=== PATIENT | female | born 1995 | race Caucasian/White ===

== ENCOUNTER 2020-05-26 15:17 | Outpatient (CLI) | payer OTHER, SELFPAY ==
[2020-05-26 17:16] LABS: HIV 1/2 Ab P24 Ag Result Negative (Negative)
[2020-05-26 17:30] LABS: Hepatitis B Surface Antigen Negative (Negative)
[2020-05-26 17:35] LABS: HAV RESULT Negative (Negative); Hepatitis B Core IgM Result Negative (Negative)
[2020-05-26 17:47] LABS: Hepatitis C Virus Antibody Negative (Negative)
[2020-05-27 11:01] LABS: Rapid Plasma Reagin Non-Reactive (NonReactive)
== END 2020-05-26 15:18 | disposition home or self-care (01) ==
PROVIDERS: PCP Family Medicine; Visit Provider Obstetrics & Gynecology
DX: Z11.3 Encounter for screening for infections with a predominantly sexual mode of transmission (principal)
CPT/HCPCS: 36415; 80074; 86592; 86695; 86696; 86703; G0432

== ENCOUNTER 2020-07-11 15:20 | Emergency (ER) | payer OTHER, SELFPAY ==
[2020-07-11 15:30] VITALS: BP 150/90; PULSE 104; RESP 20; TEMP 36.9; O2SAT 99
--- NOTE | 2020-07-11 15:33 | ED.GENADULT ---
HPI - General Adult General Chief complaint: Urogenital-Female Stated complaint: uti Time Seen by Provider: 07/11/20 15:33 Source: patient Mode of arrival: ambulatory Limitations: no limitations History of Present Illness HPI narrative: 25-year-old female patient presents to the [facility] with complaints of urinary symptoms for the past week. Patient states his symptoms actually began about 2 weeks ago but she did get tested for STDs, and BV and was actually treated for BV however her BV ended up coming back negative. She was also treated for yeast infection. Patient states that her symptoms did get better for short period of time but has now consistently been worse for the past week with pain with urination urgency and frequency. Denies any low back pain or abdominal pain. Denies any fevers, body aches or chills. Denies or breast-feeding at this time. Patient states that she is sexually active but in a monogamous relationship. Related Data Home Medications Medication Instructions Recorded Confirmed norgestimate-ethinyl estradiol 1 tablet PO DAILY 05/15/19 05/15/19 [Estarylla] Allergies Allergy/AdvReac Type Severity Reaction Status Date / Time No Known Allergies Allergy Unverified 05/15/19 09:47 Review of Systems Review of Systems: Narrative: CONSTITUTIONAL: Denies fever, chills, or sweats. EYES: Denies visual changes, redness, or discharge. ENT: Denies rhinorrhea, congestion, sore throat, or otalgia. CARDIOVASCULAR: Denies chest pain, palpitations, or edema. RESPIRATORY: Denies cough or dyspnea. GASTROINTESTINAL: Denies abdominal pain, nausea, vomiting, or diarrhea. GENITOURINARY: Positive dysuria, denies hematuria. Positive urgency and frequency SKIN: Denies rash or itching. MUSCULOSKELETAL: Denies back pain, joint pain, or myalgia. NEUROLOGIC: Denies headache, numbness, or weakness. PSYCHIATRIC: Denies anxiety or depression. [facility] Past Medical History Medical History Cough Exposure to COVID-19 virus Family History Family History Mother Hypertension Patient's mother is in good health Father Patient's father is in good health Family history of lymphoma Grandparent Family history of cardiovascular disease Family history of lung cancer Social History Social History Smoking status: Never smoker Alcohol intake: current Gender identity (if verbalized by the patient): Female Comments At the time of my signature I agree with nursing past medical history, surgical, social, and family history. There is no relevant family history pertinent to the presenting complaint. Exam Narrative: Exam Narrative: GENERAL: Well-appearing, well-nourished, and in no acute distress. HEAD: Normocephalic, atraumatic. EYES: PERRLA and EOMI. ENT: Nares clear, no rhinorrhea or epistaxis. Mucous membranes moist. NECK: Supple. No lymphadenopathy CHEST: Clear to auscultation. No respiratory distress. HEART: Regular rate and rhythm. No murmur heard. Normal peripheral pulses. ABDOMEN: Soft, nontender, nondistended, normal active bowel sounds. No CVA tenderness on percussion EXTREMITIES: Normal range of motion. No edema. SKIN: Warm, dry, no rash. NEURO: No focal deficits. Alert and oriented x3. Course Vital Signs Vital signs: Vital Signs Temperature 36.9 C 07/11/20 15:30 Pulse Rate 104 H 07/11/20 15:30 Respiratory Rate 20 07/11/20 15:30 Blood Pressure 150/90 H 07/11/20 15:30 Pulse Oximetry 99 07/11/20 15:30 Temperature 36.9 C 07/11/20 15:30 Pulse Rate 104 H 07/11/20 15:30 Respiratory Rate 20 07/11/20 15:30 Blood Pressure 150/90 H 07/11/20 15:30 Pulse Oximetry 99 07/11/20 15:30 Vital signs reviewed The patient has been informed that they may have pre-hypertension or Hypertension based on a BP david
== END 2020-07-11 15:51 | disposition home or self-care (01) ==
PROVIDERS: Emergency Provider Nurse Practitioner Family; PCP Family Medicine
DX: R30.0 Dysuria (principal); R31.9 Hematuria, unspecified
CPT/HCPCS: 81003; 81025; 87086; 99213; G0463

== ENCOUNTER 2020-07-23 06:54 | Outpatient (NON) | payer OTHER, SELFPAY ==
[2020-07-23 21:58] LABS: SARS-CoV-2 RNA PCR Negative
== END 2020-07-23 06:55 ==
LOC: ANHCOVIDDT 07:02
PROVIDERS: PCP Family Medicine; Visit Provider Family Medicine
DX: Z20.822 Contact with and (suspected) exposure to COVID-19 (principal)
CPT/HCPCS: C9803; U0003; U0005

== ENCOUNTER 2020-08-15 12:36 | Emergency (ER) | payer OTHER, SELFPAY ==
--- NOTE | ~2020-08-15 | XR_ITS ---
EXAMINATION: XR chest 2V 08/15/2020 13:42 INDICATION: Chest pain PROCEDURE: 2 view chest COMPARISON: No prior studies for comparison. FINDINGS: The lungs are clear. The cardiomediastinal silhouette is within normal limits. There are no pleural effusions. There is no pneumothorax suspected. IMPRESSION: 1: NO ACUTE CARDIOPULMONARY DISEASE. Reviewed, dictated and finalized at location B. NDENCY COUNSELOR
--- NOTE | 2020-08-15 12:38 | ECG_ITS ---
Measurements Intervals [place] Rate: 118 P: 53 [place]: 149 QRS: 50 QRSD: 81 T: 31 QT: 330 QTc: 463 Interpretive Statements SINUS TACHYCARDIA ABNORMAL ECG Electronically Signed On 08-15-2020 12:59:49 SURGICAL PROCESSOR by Evin Perez D.O.
[2020-08-15 12:45] VITALS: BP 171/95; PULSE 114; RESP 18; TEMP 36.8; O2SAT 100
[2020-08-15 12:49] VITALS: PULSE 118
[2020-08-15 12:57] VITALS: BP 166/99; PULSE 123; RESP 17; O2SAT 100
--- NOTE | 2020-08-15 13:03 | PC.NURSE ---
Spoke with POOJA Graham, patient does not need a sitter at this time. Patient is low risk on [facility] suicide risk assessment.
[2020-08-15 13:06] LABS: Basophils Absolute Auto 0.1 K/mm3 (0.0-0.1); Eosinophils Absolute Auto 0.1 K/mm3 (0-0.3); Eosinophils Percent Auto 0.9 % (0-4.4); Hematocrit 42.8 % (37.0-47.0); Hemoglobin 14.4 g/dL (12.0-15.0); Immature Granulocyte Absolute 0.03 K/mm3 (0.00-0.031); Immature Granulocyte Percent A 0.3 % (0-0.5); Lymphocytes Absolute Auto 2.29 K/mm3 (0.9-3.2); Lymphocytes Percent Auto 25.7 % (18.3-44.2); Mean Corpuscular HGB Conc 33.6 g/dl (32-36); Mean Corpuscular Hemoglobin 30.5 pg (26-34); Mean Corpuscular Volume 90.7 fl (80-100); Mean Platelet Volume 10.7 fl (7.4-10.4); Monocytes Absolute Auto 0.6 K/mm3 (0.1-0.6); Monocytes Percent Auto 6.2 % (2.6-8.5); Neutrophils Absolute Auto 5.9 K/mm3 (1.3-6.7); Neutrophils Percent Auto 65.9 % (45.5-73.1); Platelet Count Result 258 k/mm3 (150-375); Red Blood Count 4.72 M/mm3 (4.2-5.4); Red Cell Distribution Width 12.6 % (11.5-14.5); White Blood Count 8.9 K/mm3 (4.5-10.0)
[2020-08-15 13:18] LABS: Anion Gap 7 mmol/L (8-16); Blood Urea Nitrogen 18 mg/dL (7-17); Calcium 9.5 mg/dL (8.4-10.2); Carbon Dioxide 27 mmol/L (22-30); Chloride 105 mmol/L (98-107); Estimated CRCL calculation 128 ml/min; Estimated Glomerular Filt Rate > 60; Glucose 127 mg/dL (65-105); Potassium 3.5 mmol/L (3.4-5.0); Prothrombin Time 13.5 Seconds (11.1-14.7); Sodium 139 mmol/L (137-145)
[2020-08-15 13:19] LABS: Partial Thromboplastin Time 28.3 SECONDS (22.3-36.8)
[2020-08-15 13:30] LABS: Troponin I < 0.012 ng/mL (0.000-0.034)
[2020-08-15 13:39] LABS: Ethanol < 10 mg/dL (<10)
--- NOTE | 2020-08-15 13:51 | ED.CHESTPAIN ---
HPI - Chest Pain General Chief Complaint: Chest Pain Stated Complaint: chest pain, dyspnea Time Seen by Provider: 08/15/20 12:43 Source: patient Mode of arrival: ambulatory Limitations: no limitations History of Present Illness HPI narrative: Patient is a 25-year-old female who presents to emergency department with heaviness across the chest that began this morning does note some stress and anxiety in her life denies URI symptoms dyspnea or other complaints has been taking a diet pill as well patient lives at home with family presents with mother she is in no distress upon arrival patient denies similar occurrence in the past when asked questions by intake nurse she notes that she has had passive thoughts of harming herself with longstanding history of depression denies any plan or prior history of harming herself or hospitalizations patient on arrival to emergency department resting comfortably no distress Related Data Home Medications Medication Instructions Recorded Confirmed No Home Medications 08/15/20 08/15/20 Allergies Allergy/AdvReac Type Severity Reaction Status Date / Time No Known Allergies Allergy Verified 08/15/20 12:49 Review of Systems Review of Systems: All systems reviewed & are unremarkable except as noted in HPI and below PMFSH Past Medical History Medical History Cough Exposure to COVID-19 virus Pharyngitis Family History Family History Mother Hypertension Patient's mother is in good health Father Patient's father is in good health Family history of lymphoma Grandparent Family history of cardiovascular disease Family history of lung cancer Social History Social History Smoking status: Never smoker Alcohol intake: current Gender identity (if verbalized by the patient): Female Exam Narrative: Exam Narrative: GENERAL: Well-appearing, obese, and in no acute distress. HEAD: Normocephalic, atraumatic. EYES: PERRLA and EOMI. ENT: Nares clear, no rhinorrhea or epistaxis. Mucous membranes moist. CHEST: Clear to auscultation. No respiratory distress. No wheezes rales or rhonchi HEART: Regular rate and rhythm. No murmur heard. Normal peripheral pulses. ABDOMEN: Soft, nontender, nondistended EXTREMITIES: Normal range of motion. No edema. SKIN: Warm, dry, no rash. NEURO: No focal deficits. Alert and oriented x3. PSYCH: Normal mood and affect. Course Course Emergency Course: Patient evaluated in the emergency department medically cleared has safety program and contract in place with crisis I am in agreements with the patient being discharged home for outpatient follow-up provided with reasons to return and agrees to do so if symptoms worsen patient is afebrile nontoxic-appearing resting comfortably in the room Vital Signs Vital signs: Vital Signs Temperature 98.3 F 08/15/20 12:45 Pulse Rate 114 H 08/15/20 12:45 Respiratory Rate 18 08/15/20 12:45 Blood Pressure 171/95 H 08/15/20 12:45 Pulse Oximetry 100 08/15/20 12:45 Temperature 98.3 F 08/15/20 12:45 Pulse Rate 87 08/15/20 15:42 Respiratory Rate 16 08/15/20 15:42 Blood Pressure 129/66 08/15/20 15:42 Pulse Oximetry 100 08/15/20 15:42 MDM - Chest Pain MDM Narrative Medical decision making narrative: Patients EKGs and labs are without significant high risk changes. Cardiac risk factors were reviewed. Patient is felt likely to be low risk for ACS and reasonable for further risk stratification testing as an outpatient. Pain was not sudden or maximal in onset without tearing or ripping. quality. No other signs or symptoms to suggest aortic dissection. A low-risk Wells criteria is noted. PE is felt to be unlikely. No pneumonia or URI symptoms were seen on evaluation today. Patient is felt to b reasonable for continued evalu
[2020-08-15] MEDS: SODIUM CHLORIDE 0.9% IV 1,000 ML 999 ML IV CONT (14:07)
[2020-08-15 14:39] VITALS: BP 133/76; PULSE 84; RESP 18; O2SAT 100
[2020-08-15 14:48] LABS: Add Urine Microscopic? YES; Appearance Urine Cloudy (Clear); Bacteria Urine Trace /hpf; Bilirubin Urine Negative (Negative); Blood Urine Negative (Negative); Color Urine Yellow (Yellow); Glucose Urine UA Negative (Negative); Ketones Urine Negative (Negative); Leukocyte Esterase Ur Trace LEU/UL (Negative); Mucus Urine Moderate /lpf; Nitrate Urine Negative (Negative); Protein Urine 1+ mg/dL (Negative); Specific Grav Ur 1.029 (1.001-1.035); Squamous Epithelial Cell Urine Many /hpf (Few); Urobilinogen Urine Negative mg/dL (<2.0)
[2020-08-15 15:08] LABS: Amphetamine Screen Urine Negative (Negative); Barbiturate Screen Urine Negative (Negative); Benzodiazepines Screen Urine Negative (Negative); Cannabinoid Screen Urine Negative (Negative); Cocaine Screen Urine Negative (Negative); Methadone Screen Urine Negative (Negative); Opiate Screen Urine Negative (Negative); Phencyclidine Screen Urine Negative (Negative)
[2020-08-15 15:42] VITALS: BP 129/66; PULSE 87; RESP 16; O2SAT 100
--- NOTE | 2020-08-15 15:48 | PC.NURSE ---
Melissa called and stated that she will be out in about 20 min
[2020-08-15 15:54] LABS: Thyroid Stimulating Hormone 0.665 uIU/mL (0.465-4.680)
[2020-08-15 16:35] LABS: Troponin I < 0.012 ng/mL (0.000-0.034)
[2020-08-15 17:40] VITALS: BP 128/66; PULSE 93; RESP 21; O2SAT 100
== END 2020-08-15 17:40 | disposition home or self-care (01) ==
PROVIDERS: Emergency Medicine; Emergency Medicine Emergency Medical Services; Emergency Provider Emergency Medicine; PCP Family Medicine
DX: R07.9 Chest pain, unspecified (principal); F32.9 Major depressive disorder, single episode, unspecified; R00.0 Tachycardia, unspecified
CPT/HCPCS: 36415; 71046; 80048; 80307; 81001; 81025; 84443; 84484; 85025; 85610; 85730; 93005; 96360; 99284; J7030

== ENCOUNTER 2020-10-08 13:08 | Outpatient (CLI) | payer OTHER, SELFPAY ==
[2020-10-08 13:37] LABS: Basophils Absolute Auto 0.1 K/mm3 (0.0-0.1); Basophils Percent Auto 0.5 % (0.2-1.2); Eosinophils Absolute Auto 0.1 K/mm3 (0-0.3); Eosinophils Percent Auto 0.7 % (0-4.4); Hematocrit 41.4 % (37.0-47.0); Hemoglobin 14.3 g/dL (12.0-15.0); Immature Granulocyte Absolute 0.05 K/mm3 (0.00-0.031); Immature Granulocyte Percent A 0.5 % (0-0.5); Lymphocytes Absolute Auto 2.57 K/mm3 (0.9-3.2); Lymphocytes Percent Auto 23.3 % (18.3-44.2); Mean Corpuscular HGB Conc 34.5 g/dl (32-36); Mean Corpuscular Hemoglobin 30.6 pg (26-34); Mean Corpuscular Volume 88.7 fl (80-100); Mean Platelet Volume 10.4 fl (7.4-10.4); Monocytes Absolute Auto 0.9 K/mm3 (0.1-0.6); Monocytes Percent Auto 7.9 % (2.6-8.5); Neutrophils Absolute Auto 7.4 K/mm3 (1.3-6.7); Neutrophils Percent Auto 67.1 % (45.5-73.1); Platelet Count Result 299 k/mm3 (150-375); Red Blood Count 4.67 M/mm3 (4.2-5.4); Red Cell Distribution Width 12.4 % (11.5-14.5)
[2020-10-08 14:34] LABS: Hemoglobin A1C 5.2 % (<5.7)
[2020-10-08 15:00] LABS: Cholesterol 279 mg/dL (0-200); HDL Direct 62 mg/dL; Triglycerides 376 mg/dL (<150)
[2020-10-08 15:07] LABS: Thyroid Stimulating Hormone Reflex 0.121 uIU/mL (0.465-4.68)
[2020-10-08 15:11] LABS: LDL Cholesterol Direct 153 mg/dL
[2020-10-08 16:02] LABS: Free T4 Free Thyroxine Reflex 0.86 ng/dL (0.78-2.19)
[2020-10-08 17:25] LABS: Total Triiodothyronine (T3) 1.36 NG/ML (0.97-1.69)
[2020-10-11 11:04] LABS: DHEA-Sulfate 153 mcg/dL (18-391)
[2020-10-12 09:22] LABS: FSH 6.8 mIU/mL (***); LH 18.6 mIU/mL (***); Progesterone 0.2 ng/mL (***); Prolactin 4.7 ng/mL (***)
[2020-10-12 14:47] LABS: Testosterone Free 9.3 pg/mL (0.1-6.4); Testosterone Total 56 ng/dL (2-45)
[2020-10-15 18:12] LABS: Estradiol, Ultrasensitive 47 pg/mL
== END 2020-10-08 13:09 | disposition home or self-care (01) ==
PROVIDERS: PCP Family Medicine; Visit Provider Obstetrics & Gynecology
DX: N92.6 Irregular menstruation, unspecified (principal)
CPT/HCPCS: 36415; 80061; 82627; 82670; 83001; 83002; 83036; 84144; 84146; 84402; 84403; 84439; 84443; 84480; 85025

== ENCOUNTER 2020-12-12 16:00 | Outpatient (CLI) | payer OTHER, SELFPAY ==
--- NOTE | 2020-12-29 10:32 | WPDHOMESLEEP ---
Sleep Study - Home Unattended Date of Study: 12/12/20 Ordering Provider: Miguel A Anne MD Interpreting Provider: Maria De Jesus Ocasio MD Home Sleep Study Type: Apnea Link Air Height: 1.65 m Weight: 95.254 kg Body Mass Index: 34.9 Neck Circumference (inches): 16 [place]: 4 Reason for Sleep Study hypersomnia Sleep History Morenita Hendrix is a 25-year-old woman who snores loudly and she has difficulty sleeping. She has difficulty staying asleep. Both parents have sleep apnea. She does not awaken from sleep feeling short of breath. She frequently awakens at night with heartburn, belching or coughing. She constantly snores and is constantly loud enough that others complain about it. She occasionally has trouble sleep with a cold. She does not have breathing problems at night reported to her by others. She occasionally sweats excessively at night. She rarely notices her heart pounding or beating irregularly night. She rarely falls asleep during the day, does not fall asleep involuntarily and does not fall asleep while driving the car. She does not have loss of muscle tone with strong emotion. She constantly has daytime difficulties due to her excessive sleepiness. She rarely feels paralyzed on waking or falling asleep. She frequently has vivid dreamlike scenes upon awakening or falling asleep. She does not feel afraid to go to sleep. She occasionally has nightmares. She frequently remembers her dreams. She constantly is racing thoughts, constantly has feelings of sadness, depression and anxiety. She occasionally notices parts of her body jerking. She does not kick at night. She occasionally has crawling and aching feelings in her legs. She rarely has leg pain at night. She rarely has morning jaw pain. She frequently grinds her teeth during sleep. She occasionally has bothered by pain during the day she occasionally has awakened by pain at night. She constantly wakes up feeling stiff in the morning with sore achy muscles and pain in the neck and spine. She has fatigue, memory problems, depression and headaches. She has insomnia and concentration difficulties. Normal bedtime is 10:30 p.m. falling asleep within 1-2 hours, waking once at night for 2-3 hours. During this time, she will sit up and play on her phone until she is able to fall asleep again. She wakes the morning at 4:00 a.m.. She estimates getting between 4 to 5 hours of sleep routinely. She does sleep more on the weekends. On the weekends, she goes to bed at 11:00 p.m. and wakes at 8:00 a.m.. She does not generally take naps. A short nap is not refreshing. She is usually drowsy for 3 hours or longer after waking. She feels better in the afternoon compared other times of day. Habits: She quit tobacco 2 months ago. Caffeine 1 or 2 cups daily. Alcohol: small amount, 1 drink socially. Recreational drugs: social marijuana use. [facility] Past Medical History Medical History Anxiety BMI 36.0-36.9,adult Cough Elevated WBC count Exposure to COVID-19 virus Gestational diabetes Hyperlipidemia total cholesterol 279, triglycerides 376, HDL 62 and LDL 153 on 10/08/2020 Hypersomnia Impacted cerumen of left ear Otalgia, left ear Pharyngitis Tobacco abuse Family History Family History (Updated 12/29/20 @ 10:38 by Maria De Jesus Ocasio MD) Mother Hypertension Diabetes mellitus Obstructive sleep apnea Father Family history of lymphoma Obstructive sleep apnea Grandparent Family history of cardiovascular disease Family history of lung cancer Hypertension Grandparent Hypertension Heart disease Social History Social History Smoking status: Current every day smoker Tobacco type: cigarettes Alcohol intake: current Substance use: never Gender identity (if verbalized by the patient): Female Medications Home Medications Me
[2020-12-29 10:46] VITALS: BMI 34.9
== END 2020-12-12 16:09 | disposition home or self-care (01) ==
LOC: ANHCSM 12-15 10:04
PROVIDERS: PCP Nurse Practitioner Family; Visit Provider Family Medicine
DX: G47.10 Hypersomnia, unspecified (principal); G47.33 Obstructive sleep apnea (adult) (pediatric)
CPT/HCPCS: 95806

== ENCOUNTER 2021-01-06 10:44 | Outpatient (CLI) | payer OTHER, SELFPAY ==
[2021-01-06 11:20] LABS: Alanine Aminotransferase 35 U/L (4-35); Albumin Level 4.4 g/dL (3.5-5.1); Alkaline Phosphatase 96 U/L (38-126); Anion Gap 11 mmol/L (8-16); Aspartate Amino Transferase 32 U/L (14-36); Bilirubin,Total 0.3 mg/dL (0.2-1.3); Blood Urea Nitrogen 12 mg/dL (7-17); Calcium 9.8 mg/dL (8.4-10.2); Carbon Dioxide 21 mmol/L (22-30); Chloride 103 mmol/L (98-107); Cholesterol 271 mg/dL (0-200); Estimated Glomerular Filt Rate > 60; Glucose 96 mg/dL (65-105); HDL Direct 64 mg/dL; Potassium 4.2 mmol/L (3.4-5.0); Sodium 135 mmol/L (137-145); Triglycerides 390 mg/dL (<150)
[2021-01-06 11:24] LABS: Basophils Absolute Auto 0.1 K/mm3 (0.0-0.1); Basophils Percent Auto 0.7 % (0.2-1.2); Eosinophils Percent Auto 0.4 % (0-4.4); Hemoglobin 13.8 g/dL (12.0-15.0); Immature Granulocyte Absolute 0.04 K/mm3 (0.00-0.031); Immature Granulocyte Percent A 0.4 % (0-0.5); Immature Platelet Fraction Pct 5.2 % (0.9-11.2); Lymphocytes Absolute Auto 2.75 K/mm3 (0.9-3.2); Lymphocytes Percent Auto 25.7 % (18.3-44.2); Mean Corpuscular HGB Conc 32.9 g/dl (32-36); Mean Corpuscular Volume 88.2 fl (80-100); Monocytes Absolute Auto 0.6 K/mm3 (0.1-0.6); Monocytes Percent Auto 5.6 % (2.6-8.5); Neutrophils Absolute Auto 7.2 K/mm3 (1.3-6.7); Neutrophils Percent Auto 67.2 % (45.5-73.1); Red Blood Count 4.76 M/mm3 (4.2-5.4); White Blood Count 10.7 K/mm3 (4.5-10.0)
[2021-01-06 11:31] LABS: LDL Cholesterol Direct 133 mg/dL
[2021-01-06 12:27] LABS: Folic Acid > 20.0 ng/mL (2.76->20)
== END 2021-01-06 10:45 | disposition home or self-care (01) ==
PROVIDERS: PCP Family Medicine; Visit Provider Nurse Practitioner Family
DX: E78.5 Hyperlipidemia, unspecified (principal); D72.829 Elevated white blood cell count, unspecified; F32.9 Major depressive disorder, single episode, unspecified; F41.9 Anxiety disorder, unspecified
CPT/HCPCS: 36415; 80053; 80061; 82607; 82746; 85025; 85055

== ENCOUNTER → 2021-01-13 01:00 | Outpatient (CLI) | payer OTHER, SELFPAY ==
[2021-01-13 17:38] LABS: SARS-CoV-2 RNA PCR Negative
== END ==
PROVIDERS: PCP Family Medicine; Visit Provider Internal Medicine Critical Care Medicine
DX: Z01.812 Encounter for preprocedural laboratory examination (principal); Z20.822 Contact with and (suspected) exposure to COVID-19
CPT/HCPCS: C9803; U0003; U0005

== ENCOUNTER 2021-01-16 09:04 | Outpatient (CLI) | payer OTHER, SELFPAY ==
--- NOTE | 2021-02-04 14:27 | WPDSLEEPSTUD ---
Sleep Study Date of Study: 01/16/21 Ordering Provider: Miguel A Anne MD Interpreting Physician: Maria De Jesus Ocasio MD Sleep Study Type: CPAP Titration Height: 1.65 m Weight: 95.254 kg Body Mass Index: 34.9 Neck Circumference (inches): 17 [place]: 4 Reason for Sleep Study Home sleep test 12/12/2020 with mild obstructive sleep apnea, AHI 5, 67% central events, 91% and snoring; she is here for CPAP titration. Sleep History Morenita Hendrix is a 25-year-old woman who snores loudly, has difficulty getting to sleep and staying asleep. Both parents have sleep apnea. She does not awaken from sleep feeling short of breath. She frequently awakens at night with heartburn, belching or coughing. She constantly snores loudly enough that others complain about it. She occasionally has trouble sleep with a cold. She does not have breathing problems at night reported to her by others. She occasionally sweats excessively at night. She rarely notices her heart pounding or beating irregularly night. She rarely falls asleep during the day, does not fall asleep involuntarily and does not fall asleep while driving the car. She does not have loss of muscle tone with strong emotion. She constantly has daytime difficulties due to her excessive sleepiness. She rarely feels paralyzed on waking or falling asleep. She frequently has vivid dreamlike scenes upon awakening or falling asleep. She does not feel afraid to go to sleep. She occasionally has nightmares. She frequently remembers her dreams. She constantly is racing thoughts, constantly has feelings of sadness, depression and anxiety. She occasionally notices parts of her body jerking. She does not kick at night. She occasionally has crawling and aching feelings in her legs. She rarely has leg pain at night. She rarely has morning jaw pain. She frequently grinds her teeth during sleep. She occasionally is bothered by pain during the day she occasionally is awakened by pain at night. She constantly wakes up feeling stiff in the morning with sore achy muscles and pain in the neck and spine. She has fatigue, memory problems, depression and headaches. She has insomnia and concentration difficulties. Normal bedtime is 10:30 p.m. falling asleep within 1-2 hours, waking once at night for 2-3 hours. During this time, she will sit up and play on her phone until she is able to fall asleep again. She wakes the morning at 4:00 a.m.. She estimates getting between 4 to 5 hours of sleep routinely. She does sleep more on the weekends. On the weekends, she goes to bed at 11:00 p.m. and wakes at 8:00 a.m.. She does not generally take naps. A short nap is not refreshing. She is usually drowsy for 3 hours or longer after waking. She feels better in the afternoon compared other times of day. Habits: She quit tobacco 2 months ago. Caffeine 1 or 2 cups daily. Alcohol: small amount, 1 drink socially. Recreational drugs: social marijuana use. [facility] Past Medical History Medical History Anxiety Anxiety with depression BMI 34.0-34.9,adult BMI 36.0-36.9,adult Cough Elevated WBC count Exposure to COVID-19 virus Gestational diabetes Hyperlipidemia total cholesterol 279, triglycerides 376, HDL 62 and LDL 153 on 10/08/2020 Hypersomnia Impacted cerumen of left ear Otalgia, left ear Pharyngitis Tobacco abuse Yeast infection Family History Family History Mother Hypertension Diabetes mellitus Obstructive sleep apnea Father Family history of lymphoma Obstructive sleep apnea Grandparent Family history of cardiovascular disease Family history of lung cancer Hypertension Grandparent Hypertension Heart disease Social History Social History Smoking status: Former smoker Tobacco type: cigarettes Alcohol intake: current
[2021-02-04 14:28] VITALS: BMI 34.9
== END 2021-01-17 05:54 | disposition home or self-care (01) ==
LOC: ANHCSM 09:05
PROVIDERS: PCP Family Medicine; Visit Provider Family Medicine
DX: G47.33 Obstructive sleep apnea (adult) (pediatric) (principal); G47.10 Hypersomnia, unspecified; G25.81 Restless legs syndrome
CPT/HCPCS: 95811

== ENCOUNTER 2021-02-12 20:14 | Emergency (ER) | payer OTHER, SELFPAY ==
--- NOTE | ~2021-02-12 | XR_ITS ---
EXAMINATION: XR knee LT 3V DATE: 02/12/2021 23:05 INDICATION: Left knee pain post fall TECHNIQUE: Anteroposterior, oblique and crosstable lateral views of the left knee were obtained COMPARISON: None. FINDINGS: Alignment is normal. No fracture. No joint effusion/layering lipohemarthrosis. Soft tissues are unre markable. IMPRESSION: 1. Normal left knee radiographs. Reviewed, dictated and finalized at location A.
--- NOTE | ~2021-02-12 | XR_ITS ---
EXAMINATION: XR ankle LT min 3V DATE: 02/12/2021 20:29 INDICATION: Lateral left ankle pain post injury TECHNIQUE: Anteroposterior, oblique, mortise, and lateral views of the left ankle were obtained. COMPARISON: None. FINDINGS: Alignment is normal. No fracture. Joint spaces are well maintained. No ankle joint effusion. The so ft tissues are unremarkable. IMPRESSION: 1. Negative left ankle radiographs. Reviewed, dictated and finalized at location A.
[2021-02-12 20:21] VITALS: BP 144/100; PULSE 92; RESP 18; TEMP 36.4; O2SAT 99
--- NOTE | 2021-02-12 22:53 | ED.GENADULT ---
HPI - General Adult General Chief complaint: Extremity Injury, Lower Stated complaint: left ankle pain Time Seen by Provider: 02/12/21 22:07 History of Present Illness HPI narrative: Patient 26-year-old female presents the emergency department chief complaint of left ankle pain. The patient reports that she was at work stepped on a curb fell and twisted her left ankle. The patient reports that there is pain in the ankle and also reports she has pain shooting up her leg to her knee. Patient states it is worse with ambulation and improved with rest. Patient denies head injury denies loss of consciousness reports she has an abrasion on her right knee. Related Data Home Medications Medication Instructions Recorded Confirmed multivitamin with minerals 1 tablet PO DAILY 10/13/20 01/12/21 Allergies Allergy/AdvReac Type Severity Reaction Status Date / Time No Known Allergies Allergy Verified 02/12/21 20:20 Review of Systems Review of Systems: A 10 system review of systems was completed on the patient and is negative except for what is stated in the HPI. Nursing and ancillary documentation was reviewed. [facility] Past Medical History Medical History Anxiety Anxiety with depression BMI 34.0-34.9,adult BMI 36.0-36.9,adult Cough Elevated WBC count Exposure to COVID-19 virus Gestational diabetes Hyperlipidemia total cholesterol 279, triglycerides 376, HDL 62 and LDL 153 on 10/08/2020 Hypersomnia Impacted cerumen of left ear Otalgia, left ear Pharyngitis Tobacco abuse Yeast infection Family History Family History Mother Hypertension Diabetes mellitus Obstructive sleep apnea Father Family history of lymphoma Obstructive sleep apnea Grandparent Family history of cardiovascular disease Family history of lung cancer Hypertension Grandparent Hypertension Heart disease Social History Social History Smoking status: Former smoker Tobacco type: cigarettes Alcohol intake: current Substance use: never Substance use type: does not use Gender identity (if verbalized by the patient): Female Exam Narrative: GENERAL: Well-appearing, well-nourished, and in no acute distress. HEAD: Normocephalic, atraumatic. EYES: PERRLA and EOMI. ENT: Nares clear, no rhinorrhea or epistaxis. Mucous membranes moist. NECK: Supple. CHEST: Clear to auscultation. No respiratory distress. HEART: Regular rate and rhythm. No murmur heard. Normal peripheral pulses. ABDOMEN: Soft, nontender, nondistended, normal active bowel sounds. EXTREMITIES: Normal range of motion. No edema. There is tenderness to palpation in the left ankle there is also tenderness in the left knee. There is no deformity. SKIN: Warm, dry, no rash. NEURO: No focal deficits. Alert and oriented x3. PSYCH: Normal mood and affect. Course Vital Signs Vital signs: Vital Signs Temperature 36.4 C 02/12/21 20: Pulse Rate 92 02/12/21 20:21 Respiratory Rate 18 02/12/21 20:21 Blood Pressure 144/100 H 02/12/21 20:21 Pulse Oximetry 99 02/12/21 20:21 Temperature 36.4 C 02/12/21 20:21 Pulse Rate 92 02/12/21 20:21 Respiratory Rate 18 02/12/21 20:21 Blood Pressure 144/100 H 02/12/21 20:21 Pulse Oximetry 99 02/12/21 20:21 Medical Decision Making Vital Signs Vital Signs: Vital Signs Temperature 36.4 C 02/12/21 20:21 Pulse Rate 92 02/12/21 20:21 Respiratory Rate 18 02/12/21 20:21 Blood Pressure 144/100 H 02/12/21 20:21 Pulse Oximetry 99 02/12/21 20:21 Temperature 36.4 C 02/12/21 20:21 Pulse Rate 92 02/12/21 20:21 Respiratory Rate 18 02/12/21 20:21 Blood Pressure 144/100 H 02/12/21 20:21 Pulse Oximetry 99 02/12/21 20:21 Discharge Plan Discharge Clinical Impression: Left ankle sprai
[2021-02-13 00:24] VITALS: BP 140/83; PULSE 88; RESP 16; O2SAT 98
== END 2021-02-13 00:06 | disposition home or self-care (01) ==
PROVIDERS: Emergency Provider Emergency Medicine; PCP Family Medicine
DX: S93.402A Sprain of unspecified ligament of left ankle, initial encounter (principal); Z87.891 Personal history of nicotine dependence; E78.5 Hyperlipidemia, unspecified; W10.1XXA Fall (on)(from) sidewalk curb, initial encounter
CPT/HCPCS: 73562; 73610; 99284

== ENCOUNTER → 2021-03-25 00:19 | Outpatient (CLI) | payer OTHER, SELFPAY ==
[2021-03-25 16:56] LABS: SARS-CoV-2 RNA PCR Negative
== END ==
PROVIDERS: PCP Family Medicine; Visit Provider Nurse Practitioner Family
DX: Z20.822 Contact with and (suspected) exposure to COVID-19 (principal)
CPT/HCPCS: C9803; U0003; U0005

== ENCOUNTER 2021-03-27 11:40 | Outpatient (CLI) | payer OTHER, SELFPAY ==
--- NOTE | ~2021-03-27 | XR_ITS ---
XR abdomen/kub 1V 03/27/2021 11:57 INDICATION: Left lower quadrant pain TECHNIQUE: KUB COMPARISON: None FINDINGS: Bowel gas pattern is normal. There is no evidence of free air, mass, organomegaly, ascites or obstruction. No abnormal calculi are seen. The bones appear intact. IMPRESSION: 1: No acute abdominal abnormality identified. Reviewed, dictated and finalized at location A.
== END 2021-03-27 11:41 | disposition home or self-care (01) ==
LOC: ANHIMG 11:42
PROVIDERS: PCP Nurse Practitioner Family; Visit Provider Nurse Practitioner Family
DX: K59.00 Constipation, unspecified (principal); R10.32 Left lower quadrant pain; R10.33 Periumbilical pain; R11.0 Nausea
CPT/HCPCS: 74018

== ENCOUNTER 2022-01-07 13:13 | Outpatient (RCR) | payer OTHER, SELFPAY ==
[2022-01-07] MEDS: ACETAMINOPHEN 325 MG TABLET 650 MG PO (14:32)
[2022-01-07] MEDS: diphenhydrAMINE HCl CAP 25 MG CAPSULE PO (14:33)
[2022-01-07] MEDS: FAMOTIDINE 20 MG TABLET PO (14:33)
[2022-01-07 14:36] VITALS: BP 130/74; PULSE 92; TEMP 36.4; O2SAT 100
[2022-01-07] MEDS: BEBTELOVIMAB 175 MG/2 ML VIAL IV PUSH (14:51)
[2022-01-07 15:32] VITALS: BP 118/70; PULSE 81; RESP 18; O2SAT 100
== END 2022-01-07 16:00 ==
LOC: AMCINF 13:13
PROVIDERS: PCP Family Medicine; Referring Provider Family Medicine; Visit Provider Internal Medicine Hematology & Oncology
DX: U07.1 COVID-19 (principal)
CPT/HCPCS: A9270; M0222; Q0222

== ENCOUNTER 2022-02-12 08:42 | Outpatient (CLI) | payer OTHER, SELFPAY ==
[2022-02-12 09:01] LABS: Basophils Absolute Auto 0.1 K/mm3 (0.0-0.1); Basophils Percent Auto 0.9 % (0.2-1.2); Eosinophils Absolute Auto 0.1 K/mm3 (0-0.3); Eosinophils Percent Auto 1.6 % (0-4.4); Hemoglobin 12.8 g/dL (12.0-15.0); Immature Granulocyte Absolute 0.02 K/mm3 (0.00-0.031); Immature Granulocyte Percent A 0.3 % (0-0.5); Lymphocytes Absolute Auto 2.24 K/mm3 (0.9-3.2); Lymphocytes Percent Auto 34.8 % (18.3-44.2); Mean Corpuscular HGB Conc 32.8 g/dl (32-36); Mean Corpuscular Volume 91.5 fl (80-100); Mean Platelet Volume 9.9 fl (7.4-10.4); Monocytes Absolute Auto 0.6 K/mm3 (0.1-0.6); Monocytes Percent Auto 9.2 % (2.6-8.5); Neutrophils Absolute Auto 3.4 K/mm3 (1.3-6.7); Neutrophils Percent Auto 53.2 % (45.5-73.1); Platelet Count Result 289 k/mm3 (150-375); Red Blood Count 4.26 M/mm3 (4.2-5.4); Red Cell Distribution Width 13.4 % (11.5-14.5); White Blood Count 6.4 K/mm3 (4.5-10.0)
[2022-02-12 09:38] LABS: Beta HCG Quantitative < 2.39 mIU/ML
[2022-02-12 13:28] LABS: Cholesterol 212 mg/dL (0-200); HDL Direct 49 mg/dL; Triglycerides 107 mg/dL (<150)
[2022-02-12 13:39] LABS: LDL Cholesterol Direct 114 mg/dL
[2022-02-16 21:26] LABS: FSH 6.6 mIU/mL (***); Progesterone 0.3 ng/mL (***); Prolactin 7.6 ng/mL (***)
[2022-02-17 11:11] LABS: DHEA-Sulfate 108 mcg/dL (18-391)
[2022-02-18 10:23] LABS: Testosterone Total 42 ng/dL (2-45)
[2022-02-19 23:12] LABS: Estradiol, Ultrasensitive 27 pg/mL
== END 2022-02-12 08:43 | disposition home or self-care (01) ==
PROVIDERS: PCP Family Medicine; Visit Provider Obstetrics & Gynecology
DX: N93.9 Abnormal uterine and vaginal bleeding, unspecified (principal)
CPT/HCPCS: 36415; 80061; 82627; 82670; 83001; 83036; 83498; 84144; 84146; 84402; 84403; 84702; 85025

== ENCOUNTER 2022-11-09 08:49 | Outpatient (CLI) | payer OTHER, SELFPAY ==
[2022-11-09 09:13] LABS: Basophils Absolute Auto 0.1 K/mm3 (0.0-0.1); Basophils Percent Auto 0.8 % (0.2-1.2); Eosinophils Absolute Auto 0.1 K/mm3 (0-0.3); Eosinophils Percent Auto 1.1 % (0-4.4); Hematocrit 39.9 % (37.0-47.0); Hemoglobin 13.7 g/dL (12.0-15.0); Immature Granulocyte Absolute 0.03 K/mm3 (0.00-0.031); Immature Granulocyte Percent A 0.3 % (0-0.5); Lymphocytes Absolute Auto 2.65 K/mm3 (0.9-3.2); Lymphocytes Percent Auto 28.7 % (18.3-44.2); Mean Corpuscular HGB Conc 34.3 g/dl (32-36); Mean Corpuscular Hemoglobin 30.2 pg (26-34); Mean Corpuscular Volume 88.1 fl (80-100); Mean Platelet Volume 9.8 fl (7.4-10.4); Monocytes Absolute Auto 0.6 K/mm3 (0.1-0.6); Monocytes Percent Auto 6.7 % (2.6-8.5); Neutrophils Absolute Auto 5.8 K/mm3 (1.3-6.7); Neutrophils Percent Auto 62.4 % (45.5-73.1); Platelet Count Result 303 k/mm3 (150-375); Red Blood Count 4.53 M/mm3 (4.2-5.4); White Blood Count 9.2 K/mm3 (4.5-10.0)
[2022-11-09 09:27] LABS: Alanine Aminotransferase 20 U/L (6-35); Albumin Level 4.3 g/dL (3.5-5.1); Alkaline Phosphatase 57 U/L (38-126); Anion Gap 6 mmol/L (8-16); Aspartate Amino Transferase 24 U/L (14-36); Bilirubin,Total 0.6 mg/dL (0.2-1.3); Blood Urea Nitrogen 16 mg/dL (7-17); Calcium 9.2 mg/dL (8.4-10.2); Carbon Dioxide 26 mmol/L (22-30); Chloride 103 mmol/L (98-107); Cholesterol 247 mg/dL (0-200); Estimated Glomerular Filt Rate > 60; Glucose 97 mg/dL (65-110); HDL Direct 86 mg/dL; Potassium 4.1 mmol/L (3.4-5.0); Sodium 135 mmol/L (137-145); Triglycerides 230 mg/dL (<150)
[2022-11-09 09:29] LABS: Hemoglobin A1C 5.1 % (<5.7)
[2022-11-09 09:40] LABS: LDL Cholesterol Direct 132 mg/dL
[2022-11-09 09:53] LABS: Appearance Urine Cloudy (Clear); Bacteria Urine 2+ /hpf; Bilirubin Urine Negative (Negative); Blood Urine Negative (Negative); Color Urine Yellow (Yellow); Glucose Urine UA Negative (Negative); Ketones Urine Negative (Negative); Leukocyte Esterase Ur 1+ LEU/UL (NEGATIVE); Need Manual Microscopic Reviewed; Nitrate Urine Negative (Negative); Protein Urine Negative (Negative); Specific Grav Ur 1.025 (1.001-1.035); Squamous Epithelial Cell Urine Many /hpf (Few); Urobilinogen Urine 0.2 mg/dL (<2.0); pH Urine 5.5 (5.0-9.0)
[2022-11-09 10:23] LABS: Add Urine Microscopic? YES
== END 2022-11-09 08:50 | disposition home or self-care (01) ==
LOC: ANHLAB 08:51
PROVIDERS: PCP Nurse Practitioner Family; Visit Provider Nurse Practitioner Family
DX: Z13.0 Encounter for screening for diseases of the blood and blood-forming organs and certain disorders involving the immune mechanism (principal); Z13.1 Encounter for screening for diabetes mellitus; Z68.32 Body mass index [BMI] 32.0-32.9, adult; Z13.6 Encounter for screening for cardiovascular disorders; Z13.29 Encounter for screening for other suspected endocrine disorder
CPT/HCPCS: 36415; 80053; 80061; 81001; 83036; 84443; 85025

== ENCOUNTER → 2023-03-23 10:18 | Outpatient (CLI) | payer BC, SELFPAY ==
--- NOTE | ~2023-03-23 | XR_ITS ---
Clinical Indication: Cough PA and lateral views of the chest: Comparison: None Findings: The lungs are clear, without evidence of focal consolidation or pleural effusion. Cardiome diastinal silhouette is within normal limits. Bones and soft tissues are unremarkable. Impression: Normal chest. Reviewed, dictated and finalized at location . Impression: Normal chest.
== END ==
PROVIDERS: PCP Family Medicine; Visit Provider Nurse Practitioner Family
DX: R05.8 Other specified cough (principal); Z87.891 Personal history of nicotine dependence
CPT/HCPCS: 71046

== ENCOUNTER 2023-12-12 16:34 | Outpatient (CLI) | payer BC, SELFPAY ==
[2023-12-12 17:29] LABS: Appearance Urine Clear (Clear); Bacteria Urine 1+ /hpf; Bilirubin Urine Negative (Negative); Blood Urine Negative (Negative); Color Urine Yellow (Yellow); Glucose Urine UA Negative (Negative); Ketones Urine Trace mg/dL (Negative); Leukocyte Esterase Ur 1+ LEU/UL (Negative); Need Manual Microscopic Reviewed; Nitrate Urine Negative (Negative); Non Pathogenic Casts 0-2; Protein Urine Trace mg/dL (Negative); Squamous Epithelial Cell Urine Few /hpf (Few); Urobilinogen Urine 0.2 mg/dL (<2.0); WBC Urine 21-50 /hpf (0-3)
[2023-12-12 17:31] LABS: Specific Grav Ur 1.037 (1.001-1.035)
[2023-12-12 17:35] LABS: Add Urine Microscopic? YES
== END 2023-12-12 16:35 | disposition home or self-care (01) ==
LOC: ANHLAB 16:36
PROVIDERS: PCP Family Medicine; Visit Provider Nurse Practitioner Family
DX: R30.0 Dysuria (principal)
CPT/HCPCS: 81001; 87086; 87088

== ENCOUNTER 2024-02-25 09:03 | Outpatient (CLI) | payer BC, SELFPAY ==
[2024-02-25 10:34] LABS: Iron 84 ug/dL (37-170)
[2024-02-25 10:36] LABS: Cholesterol 252 mg/dL (0-200); HDL Direct 97 mg/dL; Triglycerides 117 mg/dL (<150)
[2024-02-25 10:42] LABS: Basophils Absolute Auto 0.1 K/mm3 (0.0-0.1); Basophils Percent Auto 0.9 % (0.2-1.2); Eosinophils Absolute Auto 0.1 K/mm3 (0-0.3); Eosinophils Percent Auto 1.5 % (0-4.4); Hematocrit 41.2 % (37.0-47.0); Hemoglobin 13.6 g/dL (12.0-15.0); Immature Granulocyte Absolute 0.03 K/mm3 (0.00-0.031); Immature Granulocyte Percent A 0.4 % (0-0.5); Lymphocytes Absolute Auto 2.83 K/mm3 (0.9-3.2); Lymphocytes Percent Auto 33.2 % (18.3-44.2); Mean Corpuscular Hemoglobin 29.9 pg (26-34); Mean Corpuscular Volume 90.5 fl (80-100); Mean Platelet Volume 10.3 fl (7.4-10.4); Monocytes Absolute Auto 0.6 K/mm3 (0.1-0.6); Monocytes Percent Auto 6.8 % (2.6-8.5); Neutrophils Absolute Auto 4.9 K/mm3 (1.3-6.7); Neutrophils Percent Auto 57.2 % (45.5-73.1); Platelet Count Result 311 k/mm3 (150-375); Red Blood Count 4.55 M/mm3 (4.2-5.4); Red Cell Distribution Width 12.9 % (11.5-14.5); White Blood Count 8.5 K/mm3 (4.5-10.0)
[2024-02-25 10:44] LABS: Percent Iron Saturation 19 % (20-50)
[2024-02-25 10:47] LABS: LDL Cholesterol Direct 142 mg/dL
[2024-02-25 11:06] LABS: Thyroid Stimulating Hormone Reflex 0.877 uIU/mL (0.465-4.68)
[2024-02-25 12:26] LABS: Hemoglobin A1C 5.3 % (<5.7)
[2024-02-27 14:32] LABS: Insulin Level Total 14.4 uIU/mL
[2024-02-27 16:29] LABS: Prolactin 3.6 ng/mL
[2024-03-01 18:24] LABS: Testosterone Free 1.4 pg/mL (0.1-6.4); Testosterone Total 29 ng/dL (2-45)
== END 2024-02-25 09:04 | disposition home or self-care (01) ==
LOC: ANHLAB 09:04
PROVIDERS: PCP Family Medicine; Visit Provider Obstetrics & Gynecology
DX: N92.6 Irregular menstruation, unspecified (principal); Z68.32 Body mass index [BMI] 32.0-32.9, adult
CPT/HCPCS: 36415; 80061; 82728; 83036; 83525; 83540; 83550; 84146; 84402; 84403; 84443; 85025

== ENCOUNTER 2024-03-19 00:41 | Day surgery (SDC) | payer BC, SELFPAY ==
[2024-03-12 12:33] VITALS: BMI 33.7
--- NOTE | 2024-03-12 12:39 | PC.NURSE ---
Report to the Outpatient Waiting Room, entrance under the green pavilion located off [facility], at time _0830_ on date _03/19/24__. Planned Procedure Time: _1030_.? Time changes happen often and if your time is changed the preop area will call you the afternoon before. - You and your visitor will be asked to self-screen and do not enter if you have any COVID symptoms. Please call surgeon if you need to reschedule. - A mask is optional within the hospital at this time. Patients may have clear liquids (water, carbonated beverages, clear teas, apple juice) until 3 hours prior to surgery with a maximum of 20 ounces. - No food from midnight until time of surgery and no smoking - Infants may have breast milk until 4 hours before surgery, formula 6 hours prior to surgery. - Children will be allowed to drink immediately following surgery.? If applicable, please bring a bottle or sippy cup to assist with drinking. Juice, water, soda, and popsicles are readily available.? For infants on formula, please bring formula the day of surgery.? Pacifiers are allowed. Take only the following medications with a SIP of water on the morning of surgery: ____NONE DO NOT STOP ANY OF YOUR OTHER PRESCRIPTION MEDICATIONS PRIOR TO SURGERY EXCEPT THE FOLLOWING Medications to discontinue per physician VITAMINS Date to take last dose____03/16/24 Please no make-up, nail tongan, hairspray, perfume, deodorant, or body powder the day of surgery.? No jewelry (including any body piercings) or valuables the day of surgery, leave them at home.? Please take a shower or bath the night before, or the morning of, surgery with an antibacterial soap.? Wear comfortable, loose fitting clothing.? Children are encouraged to wear pajamas. - Jewelry must be removed prior to entering the operating room.? Rings and piercings that are not removed may be cut off. - The hospital will not accept responsibility for valuables.? - Please leave all valuables, including medications, at home the day of surgery. If you are going home after surgery, a licensed courtesy driver must drive you home.? - NO public transportation without another adult if you receive anesthesia. - We recommend that an adult stay with you for 24 hours following discharge. - We also recommend that you do not drive, make important decision, drink alcoholic beverages, or take any drugs that were not prescribed by your health care provider for at least 24 hours after your discharge time. For Pediatric surgeries, we recommend two adults accompany the child home. Follow any additional instructions given to you from your surgeon. Telephone instructions given to _PATIENT__and asked if any additional questions and then verbalized understanding. Patient advised to call surgeon office or pre surgery nurse liaison [phone] if any additional questions.
--- NOTE | 2024-03-19 06:37 | WPDHPUPDATE1 ---
History and Physical Update Update Date/Time: 03/19/24 06:37 History and Physical has been reviewed, including an updated exam of the patient. There are NO changes in the patient's condition. Risks, benefits, and alternatives have been discussed and questions answered. Patient agrees to proceed with .hysteroscopy with D&C
--- NOTE | 2024-03-19 10:33 | WPDANESEPPF ---
Anes - Initial Pre Proc Eval Procedure: Operation Date: 03/19/24 10:30 Proposed Procedures p Hysteroscopy, Dilation and Curettage - Melissa Stephens MD Date/Time: 03/19/24 10:33 Surgeon: Melissa Stephens MD Pre Op Diagnosis: abnormal uterine bleeding Patient Data Age: 29 Gender: F Height: 1.68 m Weight: 95 kg Allergies Allergy/AdvReac Type Severity Reaction Status Date / Time No Known Allergies Allergy Verified 03/12/24 12:31 Home Medications Medication Instructions Recorded Confirmed Type Lactobacillus acidophilus 10 10,000 mmu cells PO DAILY 03/12/24 03/12/24 History billion cell capsule (Probiotic) drospirenone 3 mg-ethinyl 1 tablet PO HS 03/12/24 03/12/24 History estradiol 0.03 mg tablet (Jacki (28)) vitamin B6-vitamin E-magnesium 1 tablet PO DAILY 03/12/24 03/12/24 History tablet Patient hx anesthesia problems: none Family hx anesthesia problems: post op nausea/vomiting Results Review: All pre-operative results and documents have been reviewed as part of the pre-operative evaluation. [facility] Past Medical History Medical History Acute bronchitis Acute non-recurrent maxillary sinusitis Anxiety Anxiety with depression BMI 32.0-32.9,adult BMI 34.0-34.9,adult BMI 36.0-36.9,adult Candidiasis Chest heaviness Cough COVID-19 (01/03/22) positive COVID test 01/06/2022. Dysuria Elevated WBC count Exposure to COVID-19 virus Gestational diabetes Hyperlipidemia total cholesterol 279, triglycerides 376, HDL 62 and LDL 153 on 10/08/2020. Cholesterol 252, triglycerides 117, HDL 97, LDL 142 with ratio of 2.6 on 02/25/2024. Hypersomnia Impacted cerumen of left ear LLQ abdominal pain Major depression Nausea Obesity (BMI 30.0-34.9) Otalgia, left ear PCOS (polycystic ovarian syndrome) Periumbilical pain Pharyngitis Tobacco abuse Yeast infection Family History Family History Mother Hypertension Diabetes mellitus Obstructive sleep apnea Father Family history of lymphoma Obstructive sleep apnea Grandparent Family history of cardiovascular disease Family history of lung cancer Hypertension Grandparent Hypertension Heart disease Social History Social History Smoking packs per day: 1 Smoking cigarettes per day: 20.0 Years smoked: 9 Smoking pack-years: 9.00 Smoking status: Former smoker Tobacco type: cigarettes Additional smoking assessment comments: STOPPED 2023 Alcohol intake: current Alcohol use details: 1 MONTH Substance use: current Substance use type: other Other substance usage details: CBD VAPE ONCE MONTHLY FOR SEVERAL YEARS Do You Feel Safe in your Home?: Yes Lack of Transportation: No Lack of Food: Never True Current Housing: Decline to Answer Concerned About Future Housing: No Difficulty Paying Gas/Electric Bills: No Difficulty Paying for Meds: No Currently Unemployed: No Education: High School Diploma/GED Difficulty w/ Childcare or Family Care: No Living arrangements: with family Occupation/Education: occupation Additional occupation/education comments: [employer] Gender identity (if verbalized by the patient): Female Sexual Orientation (if Verbalized by the Patient): Bisexual Anes - Eval Final PreProcedure Day of Procedure 03/19/24 10:33 Patient weight: obese Heart: regular rate and rhythm Lungs: clear to auscultation Airway: Mallampati scale class II Neurological: alert and oriented Last oral intake: >/= 8 hours ASA classification: II Emergent: no Anesthetic plan: proceed Anesthesia type and monitoring: general GIVS and standard monitoring Results Review: All pre-operative results and documents have been reviewed as part of the pre-operative evaluation. Informed Consent: The patient's anesthe
[2024-03-19 10:45] VITALS: BP 139/83; PULSE 72; RESP 14; TEMP 36.7; O2SAT 100
[2024-03-19] MEDS: LACTATED RINGERS 1,000 ML 30 ML IV CONT (10:45)
[2024-03-19] MEDS: ACETAMINOPHEN 500 MG TABLET 1000 MG PO (10:45)
[2024-03-19 11:09] LABS: BEDSIDEPREGUCG Negative (Negative)
[2024-03-19] MEDS: SCOPOLAMINE 1 MG PATCH 1 PATCH TRANSDERM (11:11)
--- NOTE | 2024-03-19 11:27 | W.PM.PROC2 ---
Procedure Note - Detailed Date of Procedure 03/19/24 Pre-op Diagnosis abnormal uterine bleeding Post-op Diagnosis Same Procedure Performed Hysteroscopy with D&C Surgeon Melissa Stephens MD Anesthesia MAC Findings Normal appearing cervix. Uterus sounded to 9cm. Bilateral tubal ostia visualized. Thickened endometrium, polypoid in appearance with increased vascularity. Good hemostasis at end of case. Fluid deficit: 0cc Description of Procedure Morenita was taken to the operating room where she was placed under sedation without complications. She was then prepped and draped in the usual sterile fashion in the dorsal lithotomy position with her legs in low Bryn stirrups. A time-out was performed and no perioperative antibiotics were indicated. A bivalve speculum was placed within the vagina where the cervix was easily identified. The anterior lip of the cervix was grasped with a single-tooth tenaculum. The uterus was sounded. The cervix was then serially dilated to allow for the hysteroscope. The hysteroscope was advanced into the uterine cavity with the above findings noted. A curettage was then performed until a good uterine cry was felt throughout the uterus. The hysteroscope was once again placed back inside the uterus and it was noted that the lining then appeared normal. Good hemostasis was noted. All instruments were removed from the vagina. Sponge, lap, instrument, and needle counts were correct at the end of the procedure. Patient was awoken from anesthesia and taken to recovery with plans of same-day discharge home. Estimated Blood Loss 10 IV Fluids 500 Pathology Yes (endometrial curettings) Complications No immediate complications Condition Stable Disposition Same day [facility] Billing Surgery - Charge Forward: Surgery Billing
[2024-03-19 11:30] VITALS: BP 138/89; PULSE 92; RESP 12; O2SAT 100
[2024-03-19 12:00] VITALS: BP 154/68; PULSE 61; RESP 12
[2024-03-19] MEDS: oxyCODONE HCL (*CRX) 5 MG TAB IR PO (12:12)
[2024-03-19 12:30] VITALS: BP 150/84; PULSE 74; RESP 12
== END 2024-03-19 12:37 | disposition home or self-care (01) ==
PROVIDERS: PCP Family Medicine; Visit Provider Obstetrics & Gynecology
PROC: 0U5B8ZZ Destruction of Endometrium, Via Natural or Artificial Opening Endoscopic (ICD-10-PCS; CPT 58563; principal; 2024-03-19 10:30)
DX: N84.0 Polyp of corpus uteri (principal); R93.89 Abnormal findings on diagnostic imaging of other specified body structures; E78.5 Hyperlipidemia, unspecified; G47.10 Hypersomnia, unspecified; F32.9 Major depressive disorder, single episode, unspecified; F41.8 Other specified anxiety disorders; E28.2 Polycystic ovarian syndrome; F12.90 Cannabis use, unspecified, uncomplicated; E66.9 Obesity, unspecified; Z68.34 Body mass index [BMI] 34.0-34.9, adult; Z87.891 Personal history of nicotine dependence; Z80.1 Family history of malignant neoplasm of trachea, bronchus and lung; Z80.7 Family history of other malignant neoplasms of lymphoid, hematopoietic and related tissues; Z82.49 Family history of ischemic heart disease and other diseases of the circulatory system
CPT/HCPCS: 58558; 88305; A9270; J1100; J2250; J2405; J2704; J3010; J7120

== ENCOUNTER 2025-04-03 08:26 | Outpatient (CLI) | payer BC, SELFPAY ==
[2025-04-03 08:47] LABS: Hematocrit 41.3 % (37.0-47.0); Hemoglobin 13.7 g/dL (12.0-15.0); Immature Granulocyte Percent A 0.6 % (0-0.5); Lymphocytes Absolute Auto 2.87 K/mm3 (0.9-3.2); Mean Corpuscular HGB Conc 33.2 g/dl (32-36); Mean Corpuscular Hemoglobin 29.0 pg (26-34); Mean Corpuscular Volume 87.5 fl (80-100); Nucleated Red Blood Cells Absolute Auto 0.000 K/mm3 (0.0-0.012); Nucleated Red Blood Cells Perc 0.0 % (0.0-0.2); Platelet Count Result 314 k/mm3 (150-375); Red Blood Count 4.72 M/mm3 (4.2-5.4); White Blood Count 8.7 K/mm3 (4.5-10.0)
[2025-04-03 08:54] LABS: Add Urine Microscopic? YES; Appearance Urine Cloudy (Clear); Glucose Urine UA Negative (Negative); Leukocyte Esterase Ur 2+ LEU/UL (Negative); Nitrate Urine Negative (Negative); Non Pathogenic Casts 0-2; Specific Grav Ur 1.023 (1.001-1.035)
[2025-04-03 09:10] LABS: Alanine Aminotransferase 65 U/L (6-35); Albumin Level 4.3 g/dL (3.5-5.1); Alkaline Phosphatase 97 U/L (38-126); Anion Gap 7 mmol/L (4-12); Aspartate Amino Transferase 39 U/L (14-36); Bilirubin,Total 0.2 mg/dL (0.2-1.3); Blood Urea Nitrogen 17 mg/dL (7-17); Calcium 9.4 mg/dL (8.4-10.2); Carbon Dioxide 25 mmol/L (22-30); Chloride 103 mmol/L (98-107); Cholesterol 252 mg/dL (0-200); Estimated Glomerular Filt Rate > 60; Glucose 111 mg/dL (65-110); HDL Direct 57 mg/dL; Hemoglobin A1C 5.7 % (<5.7); Potassium 4.4 mmol/L (3.4-5.0); Sodium 135 mmol/L (137-145); Total Protein 7.6 g/dL (6.3-8.2); Triglycerides 130 mg/dL (<150)
[2025-04-03 09:41] LABS: Thyroid Stimulating Hormone Reflex 1.620 uIU/mL (0.465-4.68)
== END 2025-04-03 08:27 | disposition home or self-care (01) ==
LOC: ANHLAB 08:27
PROVIDERS: PCP Nurse Practitioner Family; Visit Provider Nurse Practitioner Family
DX: Z13.29 Encounter for screening for other suspected endocrine disorder (principal); Z13.0 Encounter for screening for diseases of the blood and blood-forming organs and certain disorders involving the immune mechanism; Z13.6 Encounter for screening for cardiovascular disorders; Z00.00 Encounter for general adult medical examination without abnormal findings; Z13.1 Encounter for screening for diabetes mellitus; Z68.36 Body mass index [BMI] 36.0-36.9, adult
CPT/HCPCS: 36415; 80053; 80061; 81001; 83036; 84443; 85025

== ENCOUNTER 2025-04-24 09:17 | Outpatient (CLI) | payer BC, SELFPAY ==
[2025-04-24 10:09] LABS: Add Urine Microscopic? YES; Appearance Urine Clear (Clear); Glucose Urine UA Negative (Negative); Leukocyte Esterase Ur 1+ LEU/UL (Negative); Nitrate Urine Negative (Negative); Non Pathogenic Casts 0-2; Specific Grav Ur 1.022 (1.001-1.035)
== END 2025-04-24 09:18 | disposition home or self-care (01) ==
LOC: ANHLAB 09:18
PROVIDERS: PCP Nurse Practitioner Family; Visit Provider Nurse Practitioner Family
DX: R30.0 Dysuria (principal)
CPT/HCPCS: 81001

== ENCOUNTER 2025-05-01 11:00 | Outpatient (CLI) | payer BC, SELFPAY | END 2025-05-01 11:01 | disposition home or self-care (01) | LOC: ANHLAB 11:02 | PROVIDERS: PCP Nurse Practitioner Family; Visit Provider Nurse Practitioner Family | DX: R30.0 Dysuria (principal) | CPT/HCPCS: 87086 ==

== ENCOUNTER 2025-05-08 14:29 | Outpatient (CLI) | payer BC, SELFPAY ==
--- NOTE | ~2025-05-08 | MR_ITS ---
EXAMINATION: MR brain/brain stem wo con DATE: 05/08/2025 15:09 INDICATION: Headache, unspecified. TECHNIQUE: Magnetic resonance imaging (MRI) of the brain and brainstem was performed without intravenous contrast. COMPARISON: None. FINDINGS: There is no intracranial hemorrhage, acute infarction, or abnormal intracranial mass lesion. The ventricles are normal in size. There is mild mucosal thickening in the ethmoid sinuses. The orbits are normal. The mastoid air cells are normal. IMPRESSION: 1. Normal brain. Reviewed, dictated and finalized at location E. [facility] IMPRESSION: 1. Normal brain.
== END 2025-05-08 14:30 | disposition home or self-care (01) ==
PROVIDERS: PCP Nurse Practitioner Family; Visit Provider Nurse Practitioner Family
DX: R51.9 Headache, unspecified (principal)
CPT/HCPCS: 70551